=== PATIENT | male | born 1965 | race Caucasian/White ===

== ENCOUNTER 2023-08-16 08:37 | Outpatient (OUT) | payer OTHER, SELFPAY ==
--- NOTE | 2023-08-16 08:43 | US_ITS ---
The [address] [address] Patient Name: SHEREE EDWARDS MRN: [id number] date: 1965 Sex: M Assigned Patient Location: US Current Patient Location: US Accession/Order Number: [id number] Exam Date: 08/16/2023 09:00 Report Date: 08/16/2023 10:19 At the request of: SALLY LUNA Procedure: US scrotum EXAMINATION: US scrotum HISTORY: Scrotal Mass N50.89 COMPARISON: No relevant comparison available. TECHNIQUE: High-resolution sonographic imaging of the scrotum and contents was performed. FINDINGS: The right testicle is normal in size, contour and homogeneous echotexture measuring 4.8 x 3.5 x 3.0 cm. No focal mass. Normal color and Doppler flow The right epididymis is normal in appearance Small right hydrocele. Small right varicocele The left testicle is normal in size, contour and homogeneous echotexture measuring 4.8 x 3.4 x 3.1 cm. No focal mass. Normal color and Doppler flow. The left epididymis is significant for multiple areas of anechoic echogenicity the largest measuring 1.8 x 1.3 x 1.9 cm. No internal echoes within the cystic lesions, spermatoceles and/or epididymal cysts Small left hydrocele. Moderate left varicocele US/US scrotum IMPRESSION: Multiple left epididymal cystic structures, spermatoceles versus epididymal cyst measuring up to 1.9 cm Small bilateral hydroceles Small right and moderate left varicocele Electronically authenticated by: LEILA CLAUDIO Date: 08/16/2023 10:19
--- NOTE | 2023-08-16 08:53 | CT_ITS ---
[address] [address] Patient Name: SHEREE EDWARDS MRN: [id number] date: 1965 Sex: M Assigned Patient Location: US Current Patient Location: US Accession/Order Number: [id number] Exam Date: 08/16/2023 08:47 Report Date: 08/16/2023 15:13 At the request of: SALLY LUNA Procedure: CT lung screening low-dose EXAMINATION: CT lung screening low-dose HISTORY: Cigarette Smoker F17.210 COMPARISON: No relevant comparison available. TECHNIQUE: Axial, Coronal, and Sagittal images were created without the administration of IV contrast material. Dose reduction techniques were achieved by using automated exposure control and/or adjustment of mA and/or kV according to patient size and/or use of iterative reconstruction technique. FINDINGS: LUNGS: Scattered subcentimeter pulmonary nodules the largest is identified in the left lower lobe axial image 104 measuring 5.4 mm in diameter, noncalcified. PLEURA: No mass, effusion, or pneumothorax. VASCULATURE: No abnormality. JOANNE: No mass or pathologic adenopathy. MEDIASTINUM: No mass or pathologic adenopathy. CARDIAC: No enlargement, pericardial thickening, or significant calcification. CORONARY ARTERIES: Coronary calcifications are mild. AORTA: No aortic aneurysm. Mild atherosclerosis CHEST WALL: No mass or axillary adenopathy BONES: No bone lesion or fracture. LIMITED ABDOMEN: No suspicious findings. Limited images of the upper abdomen. OTHER: Negative. CT/CT lung screening low-dose IMPRESSION: LUNG SCREENING: Lung-RADS Category 2- Benign Appearance or Behavior. Nodules with a very low likelihood of becoming a clinically active cancer due to size or lack of growth. 2. Continue annual screening with LDCT in 12 months. Electronically authenticated by: LEILA CLAUDIO Date: 08/16/2023 15:13
== END 2023-08-16 08:38 | disposition home or self-care (01) ==
LOC: US 08:37
PROVIDERS: PCP Family Medicine; Visit Provider Family Medicine
DX: N50.89 Other specified disorders of the male genital organs (principal); F17.210 Nicotine dependence, cigarettes, uncomplicated; N50.3 Cyst of epididymis; N43.2 Other hydrocele; I86.1 Scrotal varices
CPT/HCPCS: 71271; 76870

== ENCOUNTER 2024-09-16 12:42 | Outpatient (OUT) | payer OTHER, SELFPAY ==
--- OUTSIDE RECORDS SUMMARY | 2024-09-16 12:44 | XMS_ITS | Clinical Summary ---
Author Organization [facility] Address [address] [place] [address] Care Team Providers Care Environmental Assistant Name Role Phone Abdulkadir Lama MD Primary Care Provider [phone] Allergies No known active allergies Medications No known medications Active Problems Problem Noted Date Diagnosed Date Digital mucinous cyst of finger of left hand 12/2024 Assessment & Plan (08/22/2024 11:22 AM EDT): Bump likely cyst and currently not bother patient. Monitor and if increased in size or painful can refer to ortho. Superficial phlebitis and th rombophlebitis of right lower extremity 07/11/2023 Lung nodule 07/11/2023 Pressure ulcer of right leg, unspecified pressure ulcer stage 07/11/2023 Varicose veins of both lower extremities with pa in 07/11/2023 Varicose veins with pain 07/11/2023 Venous insufficiency 07/11/2023 Scrotal mass 07/11/2023 Assessment & Plan (07/11/2023 10:19 AM EDT): Tender mass and check US. Annual physical exam 07/11/2023 Assessment & Plan (08/22/2024 11:22 AM EDT): Due for labs. Discussed proper diet and regular aerobic exercise. Need aerobic exercise 5-6 days a week for 30 minutes at a time. Smaller portions and limit total calories. Cologuard normal in 2022. Tetanus every 10 years. Advised not to smoke. Assessment & Plan (07/11/2023 10:18 AM EDT): Discussed proper diet and regular aerobic exercise. Need aerobic exercise 5-6 days a week for 30 minutes at a time. Smaller portions and limit total calories. Cologuard normal in 2022. Tetanus every 10 years. Advised not to smoke. Discussed daily Aspirin therapy. Cigarette smoker 07/11/2023 Assessment & Plan (07/11/2023 10:19 AM EDT): Continues to smoke and discussed cessation. Start wellbutrin. Due for repeat LDCT for lung cancer. Resolved Problems Problem Noted Date Diagnosed Date Resolved Date Tobacco user 07/11/2023 08/22/2024 Encounters Date Type Department Care Team Description 08/22/2024 10:45 AM EDT Office Visit [facility] [address] [place] [address] Abdulkadir Lama MD Annual physical exam (Primary Dx); Cigarette smoker; Digital mucinous cyst of finger of left hand 08/22/2024 Bamboo flowsheet [facility] [address] [place] [address] Abdulkadir Lama MD from Last 3 Months Social History Tobacco Use Types Packs/Day Years Used Date Smoking Tobacco: Every Day Cigarettes Smokeless Tobacco: Current Sex and Gender Information Value Date Recorded Sex Assigned at Not on file Legal Sex Male 7:58 AM EDT Gender Identity Not on file Sexual Orientation Not on file Last Filed Vital Signs Vital Sign Reading Time Taken Comments Blood Pressure 106/58 08/22/2024 10:54 AM EDT Pulse 73 08/22/2024 10:54 AM EDT Temperature 36.2 C (97.1 F) 08/22/2024 10:54 AM EDT Respiratory Rate 18 08/22/2024 10:54 AM EDT Oxygen Saturation 96% 08/22/2024 10:54 AM EDT Inhaled Oxygen Concentration - - Weight 89.8 kg (198 lb) 08/22/2024 10:54 AM EDT Height 180.3 cm (5' 11 ) 08/22/2024 10:54 AM EDT Body Mass Index 27.62 08/22/2024 10:54 AM EDT Plan of Treatment Upcoming Encounters Date Type Department Care Team (Late st Contact Info) Description 09/22/2024 4:00 PM EDT Office Visit [facility] [address] [place] [address] Song Eisenberg DPM [address] [place] [address] Health Maintenance Due Date Last Done Comments CT Colonography 1965 Colonoscopy 1965 FIT 1965 FOBT 1965 Sigmoidoscopy 1965 Influenza Vaccine (Season Ended) 2024 Colorectal Cancer Screening 06/24/2025 FIT-DNA 06/24/2025 06/24/2022 Insurance [employer] Care Teams Environmental Assistant Relationship Specialty Start Date End Date Abdulkadir Lama MD [address] [place] [address] PCP - General Family Medicine 07/11/23
--- OUTSIDE RECORDS SUMMARY | 2024-09-16 12:44 | XMS_ITS | Clinical Summary ---
Author Organization [facility] Address [address] [place] [address] Care Team Providers Care Recycling Or Rubbish Collector Name Role Phone Abdulkadir Lama MD Primary Care Provider + Social History Tobacco Use Types Packs/Day Years Used Date Smoking Tobacco: Never Assessed Sex and Gender Information Value Date Recorded Sex Assigned at Not on file Legal Sex Male 1:18 PM EST Gender Identity Not on file Sexual Orientation Not on file Plan of Treatment Health Maintenance Due Date Last Done Comments DTaP/Tdap/Td vaccine (1 - Tdap) 06/28/1986 COVID-19 Vaccine (2023-2 5 season) 2023 Flu vaccine (Season Ended) 2024 Polio vaccine Aged Out No longer elig ible based on patient's age to complete this topic Insurance [facility] Care Teams Recycling Or Rubbish Collector Relationship Specialty Start Date End Date Abdulkadir Lama MD PCP - General Family Medicine 10/18/17
--- OUTSIDE RECORDS SUMMARY | 2024-09-16 12:44 | XMS_ITS | Encounter Summary ---
Author Organization [facility] Address [address] [place] [address] Care Team Providers Care Supervisor Inspecting Name Role Phone Sally Luna MD Primary Care Provider [phone] Encounter Details Date Type Department Care Team (Late st Contact Info) Description 08/16/2023 Clinisync Result Encounter [facility] External Department Unsolicited Sally Luna MD [address] [place] [address] Social History Tobacco Use Types Packs/Day Years Used Date Smoking Tobacco: Every Day Cigarettes Smokeless Tobacco: Current Sex and Gender Information Value Date Recorded Sex Assigned at Not on file Legal Sex Male 7:58 AM EDT Gender Identity Not on file Sexual Orientation Not on file documented as of this encounter Plan of Treatment Upcoming Encounters Date Type Department Care Team (Late st Contact Info) Description 09/22/2024 4:00 PM EDT Office Visit [facility] [address] [place] [phone] Song Eisenberg, TRINY [address] [place] [address] documented as of this encounter Procedures Procedure Name Priority Date/Time Associated Diagnosis Comments CT LUNG SCREENING LOW DOSE 08/16/2023 3:13 PM EDT documented in this encounter Results * CT LUNG SCREENING LOW DOSE (08/16/2023 3:13 PM EDT) Anatomical Region Laterality Modality Other 08/16/2023 3:13 PM EDT Narrative 08/16/2023 3:15 PM EDT [address] [address] [address] Scan Report Signed Patient: HERBERTH EDWARDS MR#: [id number] : 1965 Acct:[id number] Age/Sex: 58 / M ADM Date: 08/16/23 Loc: Attending Dr: Sally Luna M.D. Ordering Physician: Sally Luna M.D. Date of Service: 08/16/23 Procedure(s): CT lung screening low-dose Accession Number(s): [id number] cc: Sally Luna M.D. [place] [id number] Patient Name: HERBERTH EDWARDS MRN: [id number] date: 1965 Sex: M Assigned Patient Location: Current Patient Location: Accession/Order Number: [id number] Exam Date: 08/16/2023 08:47 Report Date: 08/16/2023 15:13 At the request of: SALLY LUNA Procedure: CT lung screening low-dose EXAMINATION: CT lung screening low-dose HISTORY: Cigarette Smoker F17.210 COMPARISON: No relevant comparison available. TECHNIQUE: Axial, Coronal, and Sagittal images were created without the administration of IV contrast material. Dose reduction techniques were achieved by using automated exposure control and/or adjustment of mA and/or kV according to patient size and/or use of iterative reconstruction technique. FINDINGS: LUNGS: Scattered subcentimeter pulmonary nodules the largest is identified in the left lower lobe axial image 104 measuring 5.4 mm in diameter, noncalcified. PLEURA: No mass, effusion, or pneumothorax. VASCULATURE: No abnormality. JOANNE: No mass or pathologic adenopathy. MEDIASTINUM: No mass or pathologic adenopathy. CARDIAC: No enlargement, pericardial thickening, or significant calcification. CORONARY ARTERIES: Coronary calcifications are mild. AORTA: No aortic aneurysm. Mild atherosclerosis CHEST WALL: No mass or axillary adenopathy BONES: No bone lesion or fracture. LIMITED ABDOMEN: No suspicious findings. Limited images of the upper abdomen. OTHER: Negative. CT/CT lung screening low-dose IMPRESSION: LUNG SCREENING: Lung-RADS Category 2- Benign Appearance or Behavior. Nodules with a very low likelihood of becoming a clinically active cancer due to size or lack of growth. 2. Continue annual screening with LDCT in 12 months. Electronically authenticated by: LEILA CLAUDIO Date: 08/16/2023 15:13 Dictated By: Leila Claudio M.D. Signed By: 08/16/23 1515 DD/ 1513 TD/TT: Plastics Scientist: Procedure Note Radiology, Radiologist, MD - 08/16/2023 [place] [address] CT Scan Report Signed Patient: HERBERTH EDWARDS DMR#: [id number] : 1965Acct:[id number] Age/Sex: 58 / MADM Date: 08/16/23 Loc: US Attending Dr: Sally Luna M.D. Ordering Physician: Sally Luna M.D. Date of Service: 08/16/23 Procedure(s): CT lung screening low-dose Accession Number(s): [id number] cc: Sally Luna M.D. The [place] [address] Patient Name: HERBERTH EDWARDS MRN: [id number] date: 1965 Sex: M Assigned Patient Location: Current Patient Location: US Accession/Order Number: [id number] Exam Date: 08/16/2023 08:47 Report Date: 08/16/2023 15:13 At the request of: SALLY LUNA Procedure: CT lung screening low-dose EXAMINATION: CT lung screening low-dose HISTORY: Cigarette Smoker F17.210 COMPARISON: No relevant comparison available. TECHNIQUE: Axial, Coronal, and Sagittal images were created without the administration of IV contrast material. Dose reduction techniques were achieved by using automated exposure control and/or adjustment of mA and/or kV according to patient size and/or use of iterative reconstruction technique. FINDINGS: LUNGS: Scattered subcentimeter pulmonary nodules the largest is identifiedin the left lower lobe axial image 104 measuring 5.4 mm in diameter, noncalcified. PLEURA: No mass, effusion, or pneumothorax. VASCULATURE: No abnormality. JOANNE: No mass or pathologic adenopathy. MEDIASTINUM: No mass or pathologic adenopathy. CARDIAC: No enlargement, pericardial thickening, or significantcalcification. CORONARY ARTERIES: Coronary calcifications are mild. AORTA: No aortic aneurysm. Mild atherosclerosis CHEST WALL: No mass or axillary adenopathy BONES: No bone lesion or fracture. LIMITED ABDOMEN: No suspicious findings. Limited images of the upperabdomen. OTHER: Negative. CT/CT lung screening low-dose IMPRESSION: LUNG SCREENING: Lung-RADS Category 2- Benign Appearance or Behavior.Nodules with a very low likelihood of becoming a clinically active cancer due tosize or lack of growth. 2. Continue annual screening with LDCT in 12 months. Electronically authenticated by: LEILA CLAUDIO Date: 08/16/2023 15:13 Dictated By: Leila Claudio M.D. Signed By:08/16/23 1515 DD/ 1513 TD/TT: Plastics Scientist: Sally Luna MD [facility] Final Result documented in this encounter Visit Diagnoses Not on filedocumented in this encounter Care Teams Supervisor Inspecting Relationship Specialty Start Date End Date Sally Luna MD [address] [place] [address] PCP - General Family Medicine 07/11/23 documented as of this encounter
--- OUTSIDE RECORDS SUMMARY | 2024-09-16 12:44 | XMS_ITS | Encounter Summary ---
Author Organization [facility] Address [address] [place] [address] Care Team Providers Care Furnace Attendant Name Role Phone Abudlkadir Lama MD Primary Care Provider [phone] Encounter Details Date Type Department Care Team (Late Contact Info) Description 07/31/2023 Abstract [facility] [address] [place] [phone] Abdulkadir Lama MD [address] [place] [phone] Social History Tobacco Use Types Packs/Day Years Used Date Smoking Tobacco: Every Day Cigarettes Smokeless Tobacco: Current Sex and Gender Information Value Date Recorded Sex Assigned at Not on file Legal Sex Male 7:58 AM EDT Gender Identity Not on file Sexual Orientation Not on file documented as of this encounter Plan of Treatment Upcoming Encounters Date Type Department Care Team (Late Contact Info) Description 09/22/2024 4:00 PM EDT Office Visit [facility] [address] [place] [address] Song Eisenberg DPM [address] [place] [address] documented as of this encounter Visit Diagnoses Not on filedocumented in this encounter Care Teams Furnace Attendant Relationship Specialty Start Date End Date Abdulkadir Lama MD [address] [place] [phone] PCP - General Family Medicine 07/11/23 documented as of this encounter
--- OUTSIDE RECORDS SUMMARY | 2024-09-16 12:44 | XMS_ITS | Encounter Summary ---
Author Organization [facility] Address [address] [place] [address] Care Team Providers Care Networks Software Consultant Name Role Phone Sally Luna MD Primary Care Provider [phone] Encounter Details Date Type Department Care Team (Late st Contact Info) Description 08/16/2023 Clinisync Result Encounter [facility] External Department Unsolicited Sally Luna MD [address] [place] [address] Social History Tobacco Use Types Packs/Day Years [...] Office Visit [facility] [address] [place] [address] Song Eisenberg, TRINY [address] [place] [address] documented as of this encounter Procedures Procedure Name Priority Date/Time Associated Diagnosis Comments US SCROTUM 08/16/2023 10:19 AM EDT documented in this encounter Results * US scrotum (08/16/2023 10:19 AM EDT) Anatomical Region Laterality Modality Body Ultrasound 08/16/2023 10:1 9 AM EDT Narrative 08/16/2023 10:22 [place] [address] Ultrasound Report Signed Patient: HERBERTH EDWARDS MR#: [id number] : 1965 Acct:[id number] Age/Sex: 58 / M ADM Date: 08/16/23 Loc: US Attending Dr: Sally Luna M.D. Ordering Physician: Sally Luna M.D. Date of Service: 08/16/23 Procedure(s): US scrotum Accession Number(s): [id number] cc: Sally Luna M.D. The [address] [address] Patient Name: HERBERTH EDWARDS MRN: [id number] date: 1965 Sex: M Assigned Patient Location: US Current Patient Location: US Accession/Order Number: [id number] Exam Date: 08/16/2023 09:00 Report Date: 08/16/2023 10:19 At the request of: SALLY LUNA Procedure: US scrotum EXAMINATION: US scrotum HISTORY: Scrotal Mass N50.89 COMPARISON: No relevant comparison available. TECHNIQUE: High-resolution sonographic imaging of the scrotum and contents was performed. FINDINGS: The right testicle is normal in size, contour and homogeneous echotexture measuring 4.8 x 3.5 x 3.0 cm. No focal mass. Normal color and Doppler flow The right epididymis is normal in appearance Small right hydrocele. Small right varicocele The left testicle is normal in size, contour and homogeneous echotexture measuring 4.8 x 3.4 x 3.1 cm. No focal mass. Normal color and Doppler flow. The left epididymis is significant for multiple areas of anechoic echogenicity the largest measuring 1.8 x 1.3 x 1.9 cm. No internal echoes within the cystic lesions, spermatoceles and/or epididymal cysts Small left hydrocele. Moderate left varicocele US/US scrotum IMPRESSION: Multiple left epididymal cystic structures, spermatoceles versus epididymal cyst measuring up to 1.9 cm Small bilateral hydroceles Small right and moderate left varicocele Electronically authenticated by: LEILA CLAUDIO Date: 08/16/2023 10:19 Dictated By: Leila Claudio M.D. Signed By: 08/16/23 1022 DD/ 1019 TD/TT: Hourly Sales Staff: Procedure Note Radiology, Radiologist, - 08/16/2023 [place] [address] Ultrasound Report Signed Patient: HERBERTH EDWARDS DMR#: [id number] : 1965Acct:[id number] Age/Sex: 58 / MADM Date: 08/16/23 Loc: US Attending Dr: Sally Luna M.D. Ordering Physician: Sally Luna M.D. Date of Service: 08/16/23 Procedure(s): US scrotum Accession Number(s): [id number] cc: Sally Luna M.D. The [place] [address] Patient Name: HERBERTH EDWARDS MRN: [id number] date: 1965 Sex: M Assigned Patient Location: US Current Patient Location: US Accession/Order Number: [id number] Exam Date: 08/16/2023 09:00 Report Date: 08/16/2023 10:19 At the request of: SALLY LUNA Procedure: US scrotum EXAMINATION: US scrotum HISTORY: Scrotal Mass N50.89 COMPARISON: No relevant comparison available. TECHNIQUE: High-resolution sonographic imaging of the scrotum and contentswas performed. FINDINGS: The right testicle is normal in size, contour and homogeneous echotexture measuring 4.8 x 3.5 x 3.0 cm. No focal mass. Normal color and Doppler flow The right epididymis is normal in appearance Small right hydrocele. Small right varicocele The left testicle is normal in size, contour and homogeneous echotexture measuring 4.8 x 3.4 x 3.1 cm. No focal mass. Normal color and Dopplerflow. The left epididymis is significant for multiple areas of anechoicechogenicity the largest measuring 1.8 x 1.3 x 1.9 cm. No internal echoes within thecystic lesions, spermatoceles and/or epididymal cysts Small left hydrocele. Moderate left varicocele US/US scrotum IMPRESSION: Multiple left epididymal cystic structures, spermatoceles versusepididymal cyst measuring up to 1.9 cm Small bilateral hydroceles Small right and moderate left varicocele Electronically authenticated by: LEILA CLAUDIO Date: 08/16/2023 10:19 Dictated By: Leila Claudio M.D. Signed By:08/16/23 1022 DD/ 1019 TD/TT: Hourly Sales Staff: us Sally Luna MD IMG US PROCEDURES Final Result documented in this encounter Visit Diagnoses Not on filedocumented in this encounter Care Teams Networks Software Consultant Relationship Specialty Start Date End Date Sally Luna MD [address] [place] [address] PCP - General Family Medicine 07/11/23 documented as of this encounter
--- NOTE | 2024-09-16 12:46 | CT_ITS ---
The [address] [address] Patient Name: SHEREE EDWARDS MRN: [id number] date: 1965 Sex: M Assigned Patient Location: CT Current Patient Location: CT Accession/Order Number: [id number] Exam Date: 09/16/2024 13:05 Report Date: 09/16/2024 13:14 At the request of: SALLY LUNA MD Procedure: CT lung screening low-dose LOW-DOSE SCREENING CHEST CT WITHOUT CONTRAST COMPARISON: 08/16/2023 CLINICAL DATA: Current smoker with 35 year history of tobacco use. Spiral axial unenhanced low-dose images were obtained through the chest. It is were reviewed using both narrow and wide window settings. This CT exam was performed using one or more following dose reduction techniques: Automated exposure control, adjustment of the mA and/or kV according to patient size, or use of iterative reconstruction technique. The heart is normal in size. There is no pericardial effusion. Minimal coronary disease is seen. The ascending aorta is borderline aneurysmal. Minimal plaque is present at the aortic arch. No enlarged lymph nodes are seen. There are minor degenerative changes at the spine. Minor apical scarring is present. There is also minimal basilar atelectasis and/or scarring. No consolidation, pleural effusion or pneumothorax is identified. A tiny 4 - 5 mm nodule is again seen at the left lower lobe (axial image 103). No new nodularity seen. Limited imaging through the upper abdomen suggests right renal cysts. CT/CT lung screening low-dose IMPRESSION: Stable tiny left lower lobe nodule. Impression dictated by: Kadi Lima M.D. 09/16/2024 1:14 PM Dictation Location: [place] [address] Electronically authenticated by: [id number] Date: 09/16/2024 13:14
--- OUTSIDE RECORDS SUMMARY | 2024-09-16 13:09 | XMS_ITS | CCD ---
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 Role Phone Cheryl GARCIA, Abdulkadir Levy Primary Care Provider ABDULKADIR LUNA Referring Jing LUNA, ABDULKADIR LEVY Primary Care Jing CLAUDIO, DR LEILA Ivey Consulting Unavailable CHERYL, DR ABDULKADIR Vidales Attending Unavailable CHERYL, DR ABDULKADIR Vidales Primary Care Unavailable CHERYL, DR ABDULKADIR Vidales Admitting Unavailable CHERYL, DR ABDULKADIR Vidales Consulting Unavailable Abdulkadir Luna MD Primary Care Provider ABDULKADIR LUNA Attending Unavailable Problems Active Problems Problem Classification Problem Date Documented Da te Episodic/Chronic Chronic ulcer of skin (3 sources) Pressure ulcer of other site, unspecified stage; Translations: [Pressure ulcer, other site] Onset: 07-11-2023 07-11-2023 Chronic Other connective tissue disease (4 sources) Digital mucous cyst of left hand; Translations: [Ganglion, left hand] Onset: 08-22-2024 08-22-2024 Episodic Substance-related disorders (11 sources) Nicotine dependence, cigarettes, uncomplicated; Translations: [Cigarette smoker ] Onset: 06-17-2022 Chronic Past or Other Problems Problem Classification Problem Date Documented Da te Episodic/Chronic Other diseases of veins and lymphatics (3 sources) Vascular insufficiency; Translations: [Venous insufficiency (chronic) (peripheral)] Onset: 4 07-11-2023 Episodic Other lower respiratory disease (3 sources) Nodule of lung; Translations: [Solitary pulmonary nodule] Onset: 4 07-11-2023 Episodic Other male genital disorders (3 sources) Scrotal mass; Translations: [Other specified disorders of the male genital organs] Onset: 4 07-11-2023 Episodic Phlebitis; thrombophlebitis and thromboembolism (3 sources) Thrombophlebitis of superficial veins of lower extremity; Translations: [Phlebitis and thrombophlebitis of superficial vessels of right lower extremity] Onset: 4 07-11-2023 Episodic Residual codes; unclassified (3 sources) Tobacco user; Translations: [Tobacco use] Onset: 4 Resolved: 5 07-11-2023 Episodic Varicose veins of lower extremity (6 sources) Varicose veins of lower extremity; Translations: [Varicose veins of bilateral lower extremities with pain] Onset: 4 07-11-2023 Episodic Results Test Name Value Interpretation Reference Range Facil ity CT LUNG CANCER SCREENINGon 0 06-19-2022 CT LUNG CANCER SCREENING EXAMINATION: CT LUNG CANCER SCREENING HISTORY: Tobacco dependence caused by cigarettes COMPARISON: No relevant comparison available. TECHNIQUE: Axial, Coronal, and Sagittal images were created without the administration of IV contrast material. Dose reduction techniques were achieved by using automated exposure control and/or adjustment of mA and/or kV according to patient size and/or use of iterative reconstruction technique. FINDINGS: LUNGS: Scattered subcentimeter pulmonary nodules the largest is noncalcified and solid measuring 5.1 mm left lower lobe axial image 7. Minimal paraseptal emphysema with a right apical predominance. Calcified tracheobronchial tree with no bronchiectasis or peribronchial thickening PLEURA: No mass, effusion, or pneumothorax. VASCULATURE: No abnormality. JOANNE: No mass or pathologic adenopathy. MEDIASTINUM: No mass or pathologic adenopathy. CARDIAC: No enlargement, pericardial thickening, or significant calcification. AORTA: No aneurysm or dissection. CHEST WALL: No mass or axillary adenopathy BONES: No bone lesion or fracture. LIMITED ABDOMEN: No suspicious findings. Limited images of the upper abdomen. OTHER: Negative. IMPRESSION: LUNG SCREENING: Lung-RADS Category 2- Benign Appearance or Behavior. Nodules with a very low likelihood of becoming a clinically active cancer due to size or lack of growth. 2. Continue annual screening with LDCT in 12 months. Electronically authenticated by: LEILA CLAUDIO Date: 2022-06-19 06:54 Normal [facility] Hemoglobin A1Con 06-11-2022 Glucose [Mass/Vol] 111 mg/dL Normal [facility] Comment on above: Result Comment: The ADA and AACC recommend providing the estimated average glucose result to permit better patient understanding of their HBA1c result. Performed By: #### G LYHGB, LIPR, PSAS #### [email or web address] [address] [place], [place] [phone] Jet Piercer Operator: Lonnie López MD #### TSH, LIVP, CDP, BMP #### [facility] [address] [place] [address] [place] [address] Jet Piercer Operator: Leila Kay MD HbA1c (Bld) [Mass fraction] 5.5 % Normal 4.0-6.0 [facility] Comment on above: Performed By: #### G LYHGB, LIPR, PSAS #### [facility] [employer] [address] [place], [place] [phone] Jet Pier[employer] Operator: Lonnie López MD #### TSH, LIVP, CDP, BMP #### [facility] [address] [place] [address] [place] [address] [employer] Pier[employer] Operator: Leila Kay MD Lipid Panelon 06-11-2022 Cholesterol [Mass/Vol] 175 mg/dL NINF - 200 mg/dL [facility] Comment on above: Cholesterol Guidelines: <200 Desirable 200-240 Borderline >240 Undesirable Cholesterol in HDL [Mass/Vol] 52 mg/dL 40 - PINF mg/dL [facility] Comment on above: HDL Guidelines: <40 Undesirable 40-59 Borderline >59 Desirable Cholesterol in LDL [Mass/Vol] 112 mg/dL 0 - 130 mg/dL [facility] Comment on above: LDL Guidelines: <100 Desirable 100-129 Near to/above Desirable 130-159 Borderline >159 Undesirable Direct (measured) LDL and calculated LDL are not interchangeable tests. Cholesterol.total/Ch olesterol in HDL [Mass ratio] 3.4 {ratio} NINF - 5 [facility] Table8 Triglyceride [Mass/Vol] 54 mg/dL NINF - 150 mg/dL [facility] Comment on above: Triglyceride Guidelines: <150 Desirable 150-199 Borderline 200-499 High >499 Very high Based on AHA Guidelines for fasting triglyceride, January 2012. [facility] Lipid Profile[facility] 06-11-2022 Cholesterol [Mass/Vol] 175 mg/dL Normal <200 [facility] Comment on above: Result Comment: Cholesterol Guidelines: <200 Desirable 200-240 Borderline >240 Undesirable Performed By: #### G LYHGB, LIPR, PSAS #### [facility] [address] [place] [address] [employer] Operator: Lonnie López MD #### TSH, LIVP, CDP, BMP #### [facility] [address] [place] [address] Dr. [place], [place] [phone] [employer] Operator: Leila Kay MD Cholesterol in HDL [Mass/Vol] 52 mg/dL Normal >40 [facility] Comment on above: Result Comment: HDL Guidelines: <40 Undesirable 40-59 Borderline >59 Desirable Performed By: #### G LYHGB, LIPR, PSAS #### [place] [address] [place] [address] [employer] Pier[employer] Operator: Lonnie López MD #### TSH, LIVP, CDP, BMP #### [address] [place] [address] Jet Pier[employer] Operator: Leila Kay MD Cholesterol in LDL [Mass/Vol] 112 mg/dL Normal 0-130 [facility] Comment on above: Result Comment: LDL Guidelines: <100 Desirable 100-129 Near to/above Desirable 130-159 Borderline >159 Undesirable Direct (measured) LDL and calculated LDL are not interchangeable tests. Performed By: #### G LYHGB, LIPR, PSAS #### [facility] [address] [place] [address] [employer] Pier[employer] Operator: Lonnie López MD #### TSH, LIVP, CDP, BMP #### [address] [place] [address] Jet Pier[employer] Operator: Leila Kay MD Cholesterol.total/Ch olesterol in HDL [Mass ratio] 3.4 {ratio} Normal <5 [facility] Comment on above: Performed By: #### G LYHGB, LIPR, PSAS #### [facility] [address] [place] [address] [employer] Operator: Lonnie López MD #### TSH, LIVP, CDP, BMP #### [address] [place] [address] [employer] Operator: Leila Kay MD Triglyceride [Mass/Vol] 54 mg/dL Normal <150 [facility] Comment on above: Result Comment: Triglyceride Guidelines: <150 Desirable 150-199 Borderline 200-499 High >499 Very high Based on AHA Guidelines for fasting triglyceride, January 2012. Performed By: #### G LYHGB, LIPR, PSAS #### [address] [place] [address] [employer] Operator: Lonnie López MD #### TSH, LIVP, CDP, BMP #### [address] [place] [address] [employer] Operator: Leila Kay MD PSA, Screeningon 06-11-2022 Prostatic Spec. Ag 1.07 ng/mL Normal <4.1 [facility] Comment on above: Result Comment: The [employer] ECLIA assay is used. Results obtained with different assay methods cannot be used interchangeably. Performed By: #### G LYHGB, LIPR, PSAS #### [address] [place], [place] [phone] [employer] Operator: Lonnie López MD #### TSH, LIVP, CDP, BMP #### [address] [place] [address] [employer] Operator: Leila Kay MD Basic Metabolic Panelon 05-18 Anion gap [Moles/Vol] 11 mmol/L 9 - 17 mmol/L [facility] Calcium [Mass/Vol] 9.3 mg/dL 8.6 - 10. 4 mg/dL [facility] Chloride [Moles/Vol] 101 mmol/L 98 - 107 mmol/L [facility] CO2 [Moles/Vol] 25 mmol/L 20 - 31 mmol/L [facility] Creatinine [Mass/Vol] 0.63 mg/dL Low 0.70 - 1.20 mg/dL [facility] GFR/1.73 sq M.predicted MDRD (S/P/Bld) [Vol rate/Area] - PINF [facility] Comment on above: These results are not intended for use in patients <18 years of age. eGFR results are calculated without a race factor using the 2020 CKD-EPI equation. Careful clinical correlation is recommended, particularly when comparing to results calculated using previous equations. The CKD-EPI equation is less accurate in patients with extremes of muscle mass, extra-renal metabolism of creatine, excessive creatine ingestion, or following therapy that affects renal tubular secretion. Glucose [Mass/Vol] 87 mg/dL 70 - 99 mg/dL [facility] Interpretation and review of laboratory results Abnormal [facility] Potassium [Moles/Vol] 4.0 mmol/L 3.7 - 5.3 mmol/L [facility] Sodium [Moles/Vol] 137 mmol/L 135 - 144 mmol/L [facility] Urea nitrogen [Mass/Vol] 14 mg/dL 6 - 20 mg/dL [facility] Urea nitrogen/Creatinine (Bld) [Mass ratio] 22 High 9 - 20 [facility] Basic Metabolic Profon 06-10 Anion gap [Moles/Vol] 11 mmol/L Normal -17 [facility] Comment on above: Performed By: #### G LYHGB, LIPR, PSAS #### [facility] [employer] [address] [place] [address] [employer] Operator: Lonnie López MD #### TSH, LIVP, CDP, BMP #### [facility] [address] [place] [address] [employer] Operator: Leila Kay MD BUN/CRE Ratio 22 High 9-20 [facility] Comment on above: Performed By: #### G LYHGB, LIPR, PSAS #### [facility] [employer] [address] [place] [address] [employer] Operator: Lonnie López MD #### TSH, LIVP, CDP, BMP #### [address] [place] [address] [employer] Operator: Leila Kay MD Calcium [Mass/Vol] 9.3 mg/dL Normal 8.6-10.4 [facility] Comment on above: Performed By: #### G LYHGB, LIPR, PSAS #### [address] [address] [employer] Operator: Lonnie López MD #### TSH, LIVP, CDP, BMP #### [address] [place], [place] [phone] [employer] Operator: Leila Kay MD Chloride [Moles/Vol] 101 mmol/L Normal 98-107 [facility] Comment on above: Performed By: #### G LYHGB, LIPR, PSAS #### [address] [address] [employer] Operator: Lonnie López MD #### TSH, LIVP, CDP, BMP #### [address] [place], [place] [phone] [employer] Operator: Leila Kay MD CO2 [Moles/Vol] 25 mmol/L Normal 20-31 [facility] Comment on above: Performed By: #### G LYHGB, LIPR, PSAS #### [address] [address] [employer] Pier[employer] Operator: Lonnie López MD #### TSH, LIVP, CDP, BMP #### [address] [place] [address] [employer] Operator: Leila Kay MD Creatinine [Mass/Vol] 0.63 mg/dL Low 0.70-1.20 [facility] Comment on above: Performed By: #### G LYHGB, LIPR, PSAS #### [facility] [address] [place], [place] [phone] [employer] Operator: Lonnie López MD #### TSH LIVCosmo, CDP, BMP #### [facility] [address] [place] [address] [employer] Operator: Leila Kay MD GFR/1.73 sq M.predicted among non-blacks MDRD (S/P/Bld) [Vol rate/Area] mL/min/{1.73_m2} Normal >60 [facility] Comment on above: Result Comment: These results are not intended for use in patients <18 years of age. eGFR results are calculated without a race factor using the 2020 CKD-EPI equation. Careful clinical correlation is recommended, particularly when comparing to results calculated using previous equations. The CKD-EPI equation is less accurate in patients with extremes of muscle mass, extra-renal metabolism of creatine, excessive creatine ingestion, or following therapy that affects renal tubular secretion. Performed By: #### G LYHGB, LIPR, PSAS #### [address] [place], [place] [phone] [employer] Operator: Lonnie López MD #### CHRISTINA LIVCosmo, TIMOTHY, BMP #### [facility] [address] [place] [address] [employer] Operator: Leila Kay MD Glucose [Mass/Vol] 87 mg/dL Normal 70-99 [facility] Comment on above: Performed By: #### G LYHGB, LIPR, PSAS #### [facility] [address] [place], [place] [phone] [employer] Operator: Lonnie López MD #### TSH LIVCosmo, CDP, BMP #### [facility] [address] [place] [address] [employer] Operator: Leila Kya MD Potassium [Moles/Vol] 4.0 mmol/L Normal 3.7-5.3 [facility] Comment on above: Performed By: #### G LYHGB, LIPR, PSAS #### [facility] [address] [place] [address] [employer] Operator: Lonnie López MD #### TSH, LIVP, CDP, BMP #### [facility] [address] [place] [address] [address] [place], [place] [phone] [employer] Operator: Leila Kay MD Sodium [Moles/Vol] 137 mmol/L Normal 135-144 [facility] Comment on above: Performed By: #### G LYHGB, LIPR, PSAS #### [address] [phone] [employer] Operator: Lonnie López MD #### TSH, LIVP, CDP, BMP #### [facility] [address] [place] [address] [address] [place] [phone] [employer] Operator: Leila Kay MD Urea nitrogen [Mass/Vol] 14 mg/dL Normal 6-20 [facility] Comment on above: Performed By: #### G LYHGB, LIPR, PSAS #### [address] [phone] [employer] Operator: Lonnie López MD #### TSH, LIVP, CDP, BMP #### [facility] [address] [place] [address] [place], [place] [phone] [employer] Operator: Leila Kay MD CBC with Auto Differentialon 06-10-2022 Absolute Eos # 0.41 [facility] Absolute Immature Granulocyte [facility] Absolute Lymph # 3.32 [facility] Absolute [place] # 0.62 [facility] Basophils (Bld) [#/Vol] 0.06 10*3/uL [facility] Basophils/100 WBC (Bld) 1 % 0 - 2 % [facility] Eosinophils/100 WBC (Bld) 5 % High 1 - 4 % [facility] Hematocrit (Bld) [Volume fraction] 42.3 % 40.7 - 50.3 % [facility] Hemoglobin (Bld) [Mass/Vol] 14.8 g/dL 13.0 - 17.0 g/dL [facility] Immature granulocytes/100 WBC (Bld) 0 % 0 [facility] Interpretation and review of laboratory results Abnormal [facility] Lymphocytes/100 WBC (Bld) 39 % 24 - 43 % [facility] MCH (RBC) [Entitic mass] 33.2 pg 25.2 - 33.5 pg [facility] MCHC (RBC) [Mass/Vol] 35.0 g/dL High 28.4 - 34.8 g/dL [facility] MCV (RBC) [Entitic vol] 94.8 fL 82.6 - 102.9 fL [facility] Monocytes/100 WBC (Bld) 7 % 3 - 12 % [facility] NRBC Automated 0.0 0.0 per 100 WBC [facility] Platelet distribution width (Bld) [Ratio] 13.3 % 11.8 - 14.4 % [facility] Platelet mean volume (Bld) [Entitic vol] 9.4 fL 8.1 - 13.5 fL [facility] Platelets (Bld) [#/Vol] 213 10*3/uL [facility] RBC (Bld) [#/Vol] 4.46 10*6/uL 4.21 - 5.7 7 m/uL [facility] Segmented neutrophils/100 WBC (Bld) 48 % 36 - 65 % [facility] Segs Absolute 4.10 [facility] WBC (Bld) [#/Vol] 8.5 10*3/uL [facility] CBC with Diffon 06-10-2022 Abs. Basophil 0.06 k/uL Normal 0.00-0.20 [facility] Comment on above: Performed By: #### G LYHGB, LIPR, PSAS #### [facility] [employer] [address] [place] [address] [employer] Operator: Lonnie López MD #### TSH, LIVP, CDP, BMP #### [address] [place], [place] [phone] Jet [employer] Operator: Leila Kay MD Abs.Imm.Granulocyte <0.03 Normal 0.00-0.30 [facility] Comment on above: Performed By: #### G LYHGB, LIPR, PSAS #### [address] [address] [employer] Operator: Lonnie López MD #### TSH, LIVP, CDP, BMP #### [address] [place] 0858683 [employer] Operator: Leila Kay MD Abs.Neutrophil (Seg) 4.10 k/uL Normal 1.50-8.10 [facility] Comment on above: Performed By: #### G LYHGB, LIPR, PSAS #### [place] [address] [employer] Operator: Lonnie López MD #### TSH, LIVP, CDP, BMP #### [address] [place] 0858683 [employer] Operator: Leila Kay MD Basophils/100 WBC (Bld) 1 % Normal 0-2 [facility] Comment on above: Performed By: #### G LYHGB, LIPR, PSAS #### [place] [address] [employer] Operator: Lonnie López MD #### TSH, LIVP, CDP, BMP #### [address] [place] 0858683 [employer] Operator: Leila Kay MD Eosinophils (Bld) [#/Vol] 0.41 10*3/uL Normal 0.00-0.44 [facility] Comment on above: Performed By: #### G LYHGB, LIPR, PSAS #### [place] [phone] [employer] Operator: Lonnie López MD #### TSH, LIVP, CDP, BMP #### [address] [place] [address] [employer] Operator: Leila Kay MD Eosinophils/100 WBC (Bld) 5 % High 1-4 [facility] Comment on above: Performed By: #### G LYHGB, LIPR, PSAS #### [address] [phone] [employer] Operator: Lonnie López MD #### TSH, LIVP, CDP, BMP #### [address] [place] 0858683 Jet [employer] Operator: Leila Kay MD Erythrocyte distribution width (RBC) [Ratio] 13.3 % Normal 11.8-14.4 [facility] Comment on above: Performed By: #### G LYHGB, LIPR, PSAS #### [address] [phone] [employer] Operator: Lonnie López MD #### TSH, LIVP, CDP, BMP #### [address] [place] 0858683 Jet [employer] Operator: Leila Kay MD Hematocrit (Bld) [Volume fraction] 42.3 % Normal 40.7-50.3 [facility] Comment on above: Performed By: #### G LYHGB, LIPR, PSAS #### [address] [phone] [employer] Operator: Lonnie López MD #### TSH, LIVP, CDP, BMP #### [address] [place] [address] [employer] Operator: Leila Kay MD Hemoglobin (Bld) [Mass/Vol] 14.8 g/dL Normal 13.0-17.0 [facility] Comment on above: Performed By: #### G LYHGB, LIPR, PSAS #### [facility] [address] [place] [address] [employer] Operator: Lonnie López MD #### TSH, LIVP, CDP, BMP #### [facility] [address] [place], [place] [phone] Jet [employer] Operator: Leila Kay MD Immature granulocytes/100 WBC (Bld) 0 % Normal 0 [facility] Comment on above: Performed By: #### G LYHGB, LIPR, PSAS #### [address] [address] [employer] Operator: Lonnie López MD #### TSH, LIVP, CDP, BMP #### [facility] [address] [place], [place] 1695683 [employer] Operator: Leila Kay MD Lymphocytes (Bld) [#/Vol] 3.32 10*3/uL Normal 1.10-3.70 [facility] Comment on above: Performed By: #### G LYHGB, LIPR, PSAS #### [address] [address] [employer] Operator: Lonnie López MD #### TSH, LIVP, CDP, BMP #### [facility] [address] [place] [address] Dr. [place], [place] [phone] Jet [employer] Operator: Leila Kay MD Lymphocytes/100 WBC (Bld) 39 % Normal 24-43 [facility] Comment on above: Performed By: #### G LYHGB, LIPR, PSAS #### [facility] [address] [place] [address] [employer] Operator: Lonnie López MD #### TSH, LIVP, CDP, BMP #### [facility] [address] [place], [place] [phone] [employer] Operator: Leila Kay MD MCH (RBC) [Entitic mass] 33.2 pg Normal 25.2-33.5 [facility] Comment on above: Performed By: #### G LYHGB, LIPR, PSAS #### [address] [address] [employer] Operator: Lonnie López MD #### TSH, LIVP, CDP, BMP #### [address] [place] [phone] [employer] Operator: Leila Kay MD MCHC (RBC) [Mass/Vol] 35.0 g/dL High 28.4-34.8 [facility] Comment on above: Performed By: #### G LYHGB, LIPR, PSAS #### [address] [address] [employer] Operator: Lonnie López MD #### TSH, LIVP, CDP, BMP #### [address] [place] 0858683 [employer] Operator: Leila Kay MD MCV (RBC) [Entitic vol] 94.8 fL Normal 82.6-102.9 [facility] Comment on above: Performed By: #### G LYHGB, LIPR, PSAS #### [place] [address] [employer] Operator: Lonnie López MD #### TSH, LIVP, CDP, BMP #### [address] [place] 0858683 [employer] Operator: Leila Kay MD Monocytes (Bld) [#/Vol] 0.62 10*3/uL Normal 0.10-1.20 [facility] Comment on above: Performed By: #### G LYHGB, LIPR, PSAS #### [address] [phone] [employer] Operator: Lonnie López MD #### TSH, LIVP, CDP, BMP #### [address] [place], [place] 3888383 [employer] Operator: Leila Kay MD Monocytes/100 WBC (Bld) 7 % Normal 3-12 [facility] Comment on above: Performed By: #### G LYHGB, LIPR, PSAS #### [address] [address] [employer] Operator: Lonnie López MD #### TSH, LIVP, CDP, BMP #### [address] [place], [place] [phone] [employer] Operator: Leila Kay MD Neutrophil (Seg) 48 % Normal 36-65 [facility] Comment on above: Performed By: #### G LYHGB, LIPR, PSAS #### [address] [phone] [employer] Operator: Lonnie López MD #### TSH, LIVP, CDP, BMP #### [address] [place], [place] [phone] [employer] Operator: Leila Kay MD NRBC Automated 0.0 per 100 WBC Normal 0.0 [facility] Comment on above: Performed By: #### G LYHGB, LIPR, PSAS #### [address] [phone] [employer] Operator: Lonnie López MD #### TSH, LIVP, CDP, BMP #### [address] [place], [place] [phone] [employer] Operator: Leila Kay MD Platelet mean volume (Bld) [Entitic vol] 9.4 fL Normal 8.1-13.5 [facility] Comment on above: Performed By: #### G LYHGB, LIPR, PSAS #### [address] [phone] [employer] Operator: Lonnie López MD #### TSH, LIVP, CDP, BMP #### [facility] [address] [place], [place] [phone] [employer] Operator: Leila Kay MD Platelets (Bld) [#/Vol] 213 10*3/uL Normal 138-453 [facility] Comment on above: Performed By: #### G LYHGB, LIPR, PSAS #### [address] [address] [employer] Operator: Lonnie López MD #### TSH, LIVP, CDP, BMP #### [facility] [address] [place] [address] [employer] Operator: Leila Kay MD RBC (Bld) [#/Vol] 4.46 10*6/uL Normal 4.21-5.77 [facility] Comment on above: Performed By: #### G LYHGB, LIPR, PSAS #### [address] [address] [employer] Operator: Lonnie López MD #### TSH, LIVP, CDP, BMP #### [address] [place], [place] [id number] [employer] Operator: Leila Kay MD WBC (Bld) [#/Vol] 8.5 10*3/uL Normal 3.5-11.3 [facility] Comment on above: Performed By: #### G LYHGB, LIPR, PSAS #### [address] [address] [employer] Operator: Lonnie López MD #### TSH, LIVP, CDP, BMP #### [facility] [address] [place] [address] [employer] Operator: Leila Kay MD Hepatic Function Panelon Albumin [Mass/Vol] 4.2 g/dL 3.5 - 5.2 g/dL [facility] Albumin/Globulin [Mass ratio] 1.6 {ratio} 1.0 - 2.5 [facility] ALP [Catalytic activity/Vol] 65 U/L 40 - 129 U/L [facility] ALT [Catalytic activity/Vol] 16 U/L 5 - 41 U/L [facility] AST [Catalytic activity/Vol] 10 U/L NINF - 40 U/L [facility] Bilirubin [Mass/Vol] 0.7 mg/dL 0.3 - 1.2 mg/dL [facility] Bilirubin.direct [Mass/Vol] mg/dL NINF - 0.3 mg/dL [facility] Bilirubin.indirect [Mass/Vol] Can not be calculated 0.0 - 1.0 mg/dL [facility] Protein [Mass/Vol] 6.9 g/dL 6.4 - 8.3 g/dL [facility] Liver Profileon 06-10-2022 Albumin [Mass/Vol] 4.2 g/dL Normal 3.5-5.2 [facility] Comment on above: Performed By: #### G LYHGB, LIPR, PSAS #### [facility] [address] [place], [place] [phone] [employer] Operator: Lonnie López MD #### TSH, LIVP, CDP, BMP #### [facility] [address] [place] [address] [place] [address] [employer] Operator: Leila Kay MD Albumin/Glob Ratio 1.6 Normal 1.0-2.5 [facility] Comment on above: Performed By: #### G LYHGB, LIPR, PSAS #### [facility] [address] [place], [place] [phone] [employer] Operator: Lonnie López MD #### TSH, LIVP, CDP, BMP #### [facility] [address] [place] [address] [employer] Operator: Leila Kay MD Alkaline Phos 65 U/L Normal 40-129 [facility] Comment on above: Performed By: #### G LYHGB, LIPR, PSAS #### [facility] [address] [place] [address] [employer] Operator: Lonnie López MD #### TSH, LIVP, CDP, BMP #### [facility] [address] [place], [place] [phone] [employer] Operator: Leila Kay MD ALT [Catalytic activity/Vol] 16 U/L Normal 5-41 [facility] Comment on above: Performed By: #### G LYHGB, LIPR, PSAS #### [address] [address] [employer] Operator: Lonnie López MD #### TSH, LIVP, CDP, BMP #### [facility] [address] [place] [address] [place] [place], [place] [phone] [employer] Operator: Leila Kay MD AST [Catalytic activity/Vol] 10 U/L Normal <40 [facility] Comment on above: Performed By: #### G LYHGB, LIPR, PSAS #### [address] [address] [employer] Operator: Lonnie López MD #### TSH, LIVP, CDP, BMP #### [facility] [address] [place] [address] [address] [place], [place] [phone] [employer] Operator: Leila Kay MD Bilirubin [Mass/Vol] 0.7 mg/dL Normal 0.3-1.2 [facility] Comment on above: Performed By: #### G LYHGB, LIPR, PSAS #### [address] [address] [employer] Operator: Lonnie López MD #### TSH, LIVP, CDP, BMP #### [facility] [address] [place] [address] [place] [place], [place] [phone] [employer] Operator: Leila Kay MD Bilirubin, Indirect Can not be calculated Normal 0.0-1 .0 [facility] Comment on above: Performed By: #### G LYHGB, LIPR, PSAS #### [address] [address] [employer] Operator: Lonnie López MD #### TSH, LIVP, CDP, BMP #### [facility] [address] [place] [address] [place] [phone] [employer] Operator: Leila Kay MD Bilirubin.indirect [Mass/Vol] mg/dL Normal <0.3 [facility] Comment on above: Performed By: #### G LYHGB, LIPR, PSAS #### [address] [phone] [employer] Operator: Lonnie López MD #### TSH, LIVP, CDP, BMP #### [address] [place] [phone] [employer] Operator: Leila Kay MD Protein [Mass/Vol] 6.9 g/dL Normal 6.4-8.3 [facility] Comment on above: Performed By: #### G LYHGB, LIPR, PSAS #### [address] [address] [employer] Operator: Lonnie López MD #### TSH, LIVP, CDP, BMP #### [address] [place] [phone] [employer] Operator: Lelia Kay MD No Panel Informationon 06-10 [facility] TSHon 06-10-2022 TSH Qn 1.39 m[IU]/L [facility] Thyroid Stim. Horm.on 2022 Thyroid Stim. Horm. 1.39 uIU/mL Normal 0.30-5.00 [facility] Comment on above: Performed By: #### G LYHGB, LIPR, PSAS #### [address] [phone] [employer] Operator: Lonnie López MD #### TSH, LIVP, CDP, BMP #### [facility] [address] [place] [address] [employer] Operator: Leila Kay MD Vital Signs Date Time Vital Sign Value Performing Clinician Levii jr 08-22-2024 10:54-0400 Body height 180.3 cm Abdulkadir Luna MD Work Phone: [facility] 08-22-2024 10:54-0400 Body mass index (BMI) [Ratio] 27.62 kg/m2 Abdulkadir Luna MD Work Phone: [facility] 08-22-2024 10:54-0400 Body temperature 97.11 [degF] Abdulkadir Luna MD Work Phone: [facility] 08-22-2024 10:54-0400 Body weight 89.81 kg Abdulkadir Luna MD Work Phone: [facility] 08-22-2024 10:54-0400 Diastolic blood pressure 58 mm[Hg] Abdulkadir Luna MD Work Phone: [facility] 08-22-2024 10:54-0400 Heart rate 73 /min Abdulkadir Luna MD Work Phone: [facility] 08-22-2024 10:54-0400 Respiratory rate 18 /min Abdulkadir Luna MD Work Phone: [facility] 08-22-2024 10:54-0400 SaO2% (BldA) [Mass fraction] 96 % Abdulkadir Luna MD Work Phone: [facility] 08-22-2024 10:54-0400 Systolic blood pressure 106 mm[Hg] Abdulkadir Luna MD Work Phone: [facility] Healthcare Encounters Encounter Date Encounter Type Care Provider Facility Start: 08-22-2024 End: 08-22-2024 Bamboo flowsheet Abdulkadir Luna MD Work Phone: [facility] Start: 08-22-2024 End: 08-22-2024 Bamboo flowsheet Abdulkadir Luna MD Work Phone: [facility] Start: 08-22-2024 End: 08-22-2024 Patient encounter procedure Abdulkadir Luna MD Work Phone: [facility] Start: 08-22-2024 End: 08-22-2024 Periodic preventive med est patient 40-64yrs Abdulkadir Luna MD Work Phone: [facility] Comment on above: Annual physical exam (Primary Dx); Cigarette smoker; Digital mucinous cyst of finger of left hand Start: 08-22-2024 End: 08-22-2024 ambulatory ABDULKADIR LUNA Not Available Start: 07-11-2023 Patient encounter procedure Abdulkadir Luna MD Work Phone: [facility] Start: 06-17-2022 End: 06-18-[address] LEILA CLAUDIO Facility: Start: 06-10-2022 End: 06-11-2022 ambulatory ABDULKADIR Mcdonald [facility] Start: 06-10-2022 End: 06-11-2022 Encounter for general adult medical examination without abnormal findings ABDULKADIR [facility]cd[facility] Start: 06-10-2022 End: 06-10-2022 Subsequent hospital visit by physician Abdulkadir Luna MD Work Phone: [facility] Laboratory Procedures Date Procedure Procedure Detail Performing Clinician Start: 06-10-2022 Basic metabolic pane l calcium total Abdulkadir Luna MD Work Phone: Start: 06-10-2022 Lipid panel Abdulkadir Luna MD Work Phone: Plan of Treatment Date Care Activity Detail Author Start: 06-24-2025 Screening for malign ant neoplasm of colon [facility] Start: 12-15-2024 Influenza vaccination Influenz a Vaccine (Season Ended) [facility] Start: 09-22-2024 End: 09-22-2024 Patient encounter procedure 09/22/2024 4:00 PM EDT Office Visit [facility] [address] [place] [address] Song Eisenberg, DPM [address] [place] [address] [facility] [employer] [facility] Start: 08-22-2024 End: 08-22-2025 Basic metabolic 1998 panel - Serum or Plasma Basic metabolic panel Lab Routine Annual physical exam Expected: 08/22/2024 (Approximate), Expires: 08/22/2025 [facility] Comment on above: Expected: 08/22/2024 (Approximate), Expires: 08/22/2025 Start: 08-22-2024 End: 08-22-2025 CBC W Auto Differential panel - Blood CBC and differential Lab Routine Annual physical exam Expected: 08/22/2024 (Approximate), Expires: 08/22/2025 [facility] Comment on above: Expected: 08/22/2024 (Approximate), Expires: 08/22/2025 Start: 08-22-2024 End: 08-22-2025 CT Chest for screening WO contrast CT lung screening low dose Imaging Routine Cigarette smoker Expected: 08/22/2024, Expires: 08/22/2025 [facility] Comment on above: Expected: 08/22/2024 , Expires: 08/22/2025 Start: 08-22-2024 End: 08-22-2025 Hemoglobin A1c/Hemoglobin.total in Blood Hemoglobin A1c Lab Routine Annual physical exam Expected: 08/22/2024 (Approximate), Expires: 08/22/2025 [facility] Work Phone: Comment on above: Expected: 08/22/2024 (Approximate), Expires: 08/22/2025 Start: 08-22-2024 End: 08-22-2025 Hepatic function 2000 panel - Serum or Plasma Hepatic function panel Lab Routine Annual physical exam Expected: 08/22/2024 (Approximate), Expires: 08/22/2025 [facility] Comment on above: Expected: 08/22/2024 (Approximate), Expires: 08/22/2025 Start: 08-22-2024 End: 08-22-2025 Lipid 1996 panel - Serum or Plasma Lipid panel Lab Routine Annual physical exam Expected: 08/22/2024 (Approximate), Expires: 08/22/2025 [facility] Comment on above: Expected: 08/22/2024 (Approximate), Expires: 08/22/2025 Start: 08-22-2024 End: 08-22-2025 Prostate specific Ag [Mass/volume] in Serum or Plasma PSA Lab Routine Annual physical exam Expected: 08/22/2024 (Approximate), Expires: 08/22/2025 [facility] Comment on above: Expected: 08/22/2024 (Approximate), Expires: 08/22/2025 Start: 08-22-2024 End: 08-22-2025 Thyrotropin [Units/volume] in Serum or Plasma TSH Lab Routine Annual physical exam Expected: 08/22/2024 (Approximate), Expires: 08/22/2025 [facility] Comment on above: Expected: 08/22/2024 (Approximate), Expires: 08/22/2025 Start: 08-22-2024 End: 08-22-2024 Patient encounter procedure 08/22/2024 10:45 AM EDT Office Visit [facility] [address] [place] [address] Abdulkadir Luna MD [address] [place] [id number] Arrived [facility] Comment on above: Arrived Start: 11-14-2021 Influenza vaccination Flu vaccine (# 1) [facility] Start: 06-28-1986 DTaP/Tdap/Td vaccine (1 - Tdap) DTaP/Tdap/Td vaccine (1 - Tdap) [facility] Start: 1965 COVID-19 Vaccine (#1) COVID-19 Vacci ne (#1) [facility] Start: 1965 Screening for malign ant neoplasm of colon [facility] End: 06-10-2022 Hemoglobin A1c/Hemoglobin.total in Blood [facility] Work Phone: Comment on above: Once for 1 Occurrenc es starting 06/10/2022 until 06/10/2022 End: 06-10-2022 PSA screening [facility] [employer] Phone: Comment on above: Once for 1 Occurrenc es starting 06/10/2022 until 06/10/2022 Payers Date Payer Category Payer Managed Care HMO (unspecified) [id number] 2023 Private Health Insurance [id number] 1967 Unknown [id number] 1967 Unknown [id number] 1967 Unknown [id number] 1959 Private Health Insurance [id number] Social History Date Type Detail Facility Tobacco smoking status GAIS Tobacco smoking consumption unknown [facility] [employer] Phone: Start: 1965 Sex Assigned At Not on file B ON [employer] Phone: Start: 07-11-2023 Tobacco smoking status [facility] Smokes tobacco daily [facility] History of tobacco use Cigarette Smoker [facility] Start: 07-11-2023 Tobacco use and exposure User of smokeless tobacco [facility] Start: 07-11-2023 End: 08-22-2024 History of Social function [facility] Start: 07-11-2023 End: 08-22-2024 Tobacco use panel [facility] History of Present illness Narrative 08-22-2024 Abdulkadir Luna MD - 08/22/2024 11:22 AM Lory Luna MD - 08/22/2024 11:22 AM Lory Luna MD - 08/22/2024 10:45 AM EDT Note Date & Type Note Facility 08-22-2024 History of Presen t illness Narrative Associated Problem(s): Digital mucinous cyst of finger of left hand Bump likely cyst and currently not bother patient. Monitor and if increased in size or painful can refer to ortho. Associated Problem(s): Annual physical exam Due for labs. Discussed proper diet and regular aerobic exercise. Need aerobic exercise 5-6 days a week for 30 minutes at a time. Smaller portions and limit total calories. Cologuard normal in 2022. Tetanus every 10 years. Advised not to smoke. Images from the original note were not included. Subjective Patient ID: Herberth Friedman is a 59 y.o. male who presents for Annual Exam (Wellness/Lump on left pinky finger). Presents for annual PE. Patient feels well today. Weight down 3 pounds in the past year. Active at work but no regular exercise or activity. Tries to watch diet and eat healthy. Increased fruits and vegetables. Smaller portions and limits snacking. Tries to limit total daily calories. Due for labs and repeat CT chest. C/o lump on johnson side of left pinky over PIP for months. Initially larger and tender. Drained clear fluid and now smaller. No longer painful and doesn't bother patient. Review of Systems Constitutional: Negative for fatigue. Respiratory: Negative for cough, shortness of breath and wheezing. Cardiovascular: Negative for chest pain and palpitations. Gastrointestinal: Negative for abdominal pain, diarrhea, nausea and vomiting. Genitourinary: Negative for dysuria. Objective Physical Exam Constitutional: General: He is not in acute distress. Appearance: Normal appearance. HENT: Head: Normocephalic. Right Ear: Tympanic membrane and ear canal normal. Left Ear: Tympanic membrane and ear canal normal. Eyes: Extraocular Movements: Extraocular movements intact. Pupils: Pupils are equal, round, and reactive to light. Cardiovascular: Rate and Rhythm: Normal rate and regular rhythm. Heart sounds: No murmur heard. No friction rub. No gallop. Pulmonary: Breath sounds: Normal breath sounds. No wheezing, rhonchi or rales. Abdominal: General: Bowel sounds are normal. There is no distension. Palpations: Abdomen is soft. Tenderness: There is no abdominal tenderness. There is no guarding or rebound. Musculoskeletal: General: Normal range of motion. Left lower leg: No edema. Neurological: General: No focal deficit present. Mental Status: He is alert. Cranial Nerves: No cranial nerve deficit. Deep Tendon Reflexes: Reflexes normal. Assessment/Plan Problem List Items Addressed This Visit Annual physical exam - Primary Due for labs. Discussed proper diet and regular aerobic exercise. Need aerobic exercise 5-6 days a week for 30 minutes at a time. Smaller portions and limit total calories. Cologuard normal in 2022. Tetanus every 10 years. Advised not to smoke. Relevant Orders Hemoglobin A1c Basic metabolic panel CBC and differential Hepatic function panel Lipid panel PSA TSH Cigarette smoker Relevant Orders CT lung screening low dose Digital mucinous cyst of finger of left hand Bump likely cyst and currently not bother patient. Monitor and if increased in size or painful can refer to ortho. documented in this encounter [facility] Evaluation note Note Date & Type Note Facility Evaluation note Diagnosis Annual physical exam- Primary Routine general medical examination at a health care facility Scrotal mass Other specified disorder of male genital organs Cigarette smoker Tobacco use disorder Annual physical exam- Primary Routine general medical examination at a health care facility Cigarette smoker Tobacco use disorder Digital mucinous cyst of finger of left hand documented in this encounter [facility] Summary Purpose Family History No Family History Records FoundNo Family History Records FoundNo Family History Records Found Advance Directives No Advanced Directives Records FoundNo Advanced Directives Records FoundNo Advanced Directives Records Found Additional Source Comments Care Teams (unrecognized sec tion and content) [employer] Relationship Specialty Start Date End Date Abdulkadir Luna MD PCP - General Family Medicine 10/18/17 [employer] Relationship Specialty Start Date End Date Abdulkadir Luna MD [address] [place] [address] PCP - General Family Medicine 07/11/23 [employer] Relationship Specialty Start Date End Date Abdulkadir Luna MD [address] [place] [address] PCP - General Family Medicine 07/11/23 (unrecognized sect ion and content) No Status Records FoundNo Status Records FoundNo Status Records Found INFORMATION SOURCE (unrecogn ized section and content) DATE CREATED AUTHOR 06/11/2022 [facility] DATE CREATED AUTHOR AUTHOR'S ORGANIZ ATION 06/20/2022 [facility] DATE CREATED AUTHOR AUTHOR'S ORGANIZ ATION 08/24/2024 [facility] EPIC Reason for Visit (unrecogniz ed section and content) Reason Comments Annual Exam WellnessLump on left pinky finger FOR RECORDS PERTAINING TO PATIENTS WHO ARE OR HAVE BEEN ENROLLED IN A CHEMICAL DEPENDENCY/SUBSTANCEABUSE PROGRAM, SOME INFORMATION MAY BE OMITTED. This clinical summary was aggregated from multiple sources. Caution should be exercised in using it in the provision of clinical care. This summary normalizes information from multiple sources, and as a consequence, information in this document may materially change the coding, format and clinical context of patient data. In addition, data may be omitted in some cases. CLINICAL DECISIONS SHOULD BE BASED ON THE PRIMARY CLINICAL RECORDS. [employer] provides no warranty or guarantee of the accuracy or completeness of information in this document.
[2024-09-16 13:37] LABS: Basophils Percent Auto 0.5 % (0.2-2.0); Eosinophils Absolute Auto 0.3 10^3/uL (0.0-0.7); Eosinophils Percent Auto 3.9 % (0.9-7.0); Hemoglobin 14.9 g/dL (14.0-18.0); Immature Granulocytes Abs Auto 0.02 10^3/uL (0.00-0.03); Immature Granulocytes Pct Auto 0.3 % (0.0-0.5); Lymphocytes Absolute Auto 2.8 10^3/uL (1.2-3.8); Lymphocytes Percent Auto 35.3 % (20.5-60.0); Mean Corpuscular HGB Conc 34.7 g/dL (29.9-35.2); Mean Corpuscular Hemoglobin 32.6 pg (25.9-34.0); Mean Corpuscular Volume 94.1 fL (80.0-94.0); Mean Platelet Volume 9.3 fL (9.5-13.5); Monocytes Absolute Auto 0.6 10^3/uL (0.3-0.8); Monocytes Percent Auto 7.6 % (1.7-12.0); Neutrophils Absolute Auto 4.2 10^3/uL (1.4-6.5); Neutrophils Percent Auto 52.4 % (43.0-75.0); Platelet Count 224 10^3/uL (150-450); Red Blood Count 4.57 10^6/uL (4.70-6.10); Red Cell Distribution Width 13.1 % (11.0-15.0)
[2024-09-16 14:10] LABS: Estimated Average Glucose 117 mg/dL; Glycohemoglobin A1C 5.7 % (4.5-6.2)
[2024-09-16 14:45] LABS: Alanine Aminotransferase 25 U/L (16-63); Albumin Globulin Ratio 1.2; Albumin Level 3.9 g/dL (3.4-5.0); Alkaline Phosphatase 78 U/L (46-116); Anion Gap 12.6; Aspartate Amino Transferase 10 U/L (15-37); BUN Creatinine Ratio 23.9; Bilirubin Direct 0.1 mg/dL (0.0-0.2); Bilirubin Total 0.5 mg/dL (0.2-1.0); Calcium 9.1 mg/dL (8.5-10.1); Carbon Dioxide 28.4 mmol/L (21.0-32.0); Chloride 103 mmol/L (98-107); Chol HDL Ratio 3.1; Cholesterol 186 mg/dL (<=200); Estimated GFR (African America >60 (>=60 mL/min/1.73m^2); Estimated GFR (Non-African Ame >60 (>=60 mL/min/1.73m^2); Globulin 3.3 g/dL; Glucose 85 mg/dL (74-106); HDL Cholesterol 60 mg/dL (40-60); LDL Cholesterol Calculated 118.2 mg/dL; Sodium 140 mmol/L (136-145); Thyroid Stimulating Hormone 1.188 uIU/mL (0.358-3.740); Total Protein 7.2 g/dL (6.4-8.2); Triglycerides 39 mg/dL (<=150); VLDL CHOLESTEROL 7.8 mg/dL
== END 2024-09-16 12:43 | disposition home or self-care (01) ==
LOC: CT 12:42
PROVIDERS: PCP Family Medicine; Visit Provider Family Medicine
DX: Z00.00 Encounter for general adult medical examination without abnormal findings (principal); R91.1 Solitary pulmonary nodule; F17.210 Nicotine dependence, cigarettes, uncomplicated
CPT/HCPCS: 36415; 71271; 80048; 80061; 80076; 83036; 84443; 85025; 87150; G0103